=== PATIENT | female | born 1955 | race Caucasian/White ===

== ENCOUNTER → 2019-05-26 | Outpatient (REF) | payer OTHER ==
[~2019-05-26] MED LIST: AMLO25TA PO; BAYE325T12 PO; CALC500C16 PO; D32000TA PO; DITR1TAB PO; FLUO40CA PO; MAGN250T7 PO; MOBI4TAB PO; OMEP-218 PO
[2019-05-26 14:19] LABS: APPEARANCE, URINE TURBID (CLEAR); BACTERIA, URINE AUTO 3+ (NEGATIVE); BILIRUBIN, URINE AUTO NEGATIVE (NEGATIVE); BLOOD, URINE BLOOD 3+ (NEGATIVE); COLOR, URINE AMBER (YELLOW); GLUCOSE, URINE (UA) AUTO NEGATIVE (NEGATIVE); KETONE, URINE AUTO NEGATIVE (NEGATIVE); LEUKOCYTE ESTERASE, URINE AUTO 3+ (NEGATIVE); NITRITE, URINE AUTO NEGATIVE (NEGATIVE); PROTEIN, URINE AUTO 2+ mg/dL (NEGATIVE); RBC, URINE AUTO 33 /HPF (0-3); SPECIFIC GRAVITY URINE AUTO 1.017 (1.002-1.035); SQUAMOUS EPITHELIAL CELL UR AU 0 /HPF (0-6); UROBILINOGEN, URINE AUTO 0.2 mg/dL (0.0-2.0); WBC, URINE AUTO TNTC /HPF (0-3)
== END ==
LOC: M LAB REF 13:26
PROVIDERS: ATTEND Physician Assistant Medical
DX: N39.0 Urinary tract infection, site not specified (principal)

== ENCOUNTER 2019-06-04 10:07 | Day surgery (SDC) | payer BC ==
[~2019-06-04] VITALS: Ht 157.5 cm; Wt 51.7 kg
[~2019-06-04 10:07] MED LIST changes: +LIDOCAINE 1% MDV 20ML VIAL SQ PRN; +LR 1,000 ML IV ONE; +ceFAZolin SOD 2 GM in IV 1 EA IV ONE
[2019-06-04] MEDS ORDERED: LIDOCAINE 1% MDV 20ML VIAL ONE (10:08)
[2019-06-04] MEDS ORDERED: dexameTHASONE 10 MG/1 ML VIAL PRES.FREE (J1100) ONE (10:08)
[2019-06-04] MEDS ORDERED: PROPOFOL 200 MG/20 ML VIAL As Ordered ONE (10:35)
[2019-06-04] MEDS ORDERED: fentaNYL 100 MCG/2 ML INJECTION (J3010) As Ordered ONE (10:35)
[2019-06-04] MEDS ORDERED: dexameTHASONE 4 MG/ML 1ML VIAL (J1100) As Ordered ONE (10:35)
[2019-06-04] MEDS ORDERED: MIDAZOLAM INJ 2 MG/2 ML VIAL (J2250) As Ordered ONE (10:35)
[2019-06-04] MEDS ORDERED: ONDANSETRON 4MG/2ML VIAL (J2405) As Ordered ONE (10:35)
[2019-06-04] MEDS ORDERED: ROCURONIUM BROMIDE 50 MG/5 ML VIAL As Ordered ONE (10:36)
[2019-06-04] MEDS ORDERED: LIDOCAINE 2% INJ 100 MG/5 ML SDV (FOR ANES.) As Ordered ONE (10:36)
[2019-06-04] MEDS ORDERED: ACET-683 PO (11:00)
[2019-06-04] MEDS ORDERED: ACETAMINOPHEN 1000MG 100ML IV BTL (OFIRMEV) (J0131 PER 10MG) As Ordered ONE (13:19)
[2019-06-04] MEDS ORDERED: PHENYLephrine HCL 500 MCG/5 ML (100MCG/ML) SYRINGE (J2370) As Ordered ONE (13:24)
[2019-06-04] MEDS ORDERED: fentaNYL 100 MCG/2 ML INJECTION (J3010) IV PRN ×2 (14:45→16:00)
[2019-06-04] MEDS ORDERED: LR 1,000 ML IV SCH ×2 (14:45→16:00)
[2019-06-04] MEDS ORDERED: ONDANSETRON 4MG/2ML VIAL (J2405) IV PRN ×2 (14:45→16:00)
[2019-06-04] MEDS ORDERED: oxyCODONE 5MG TAB PO PRN ×2 (14:45→16:00)
[2019-06-04] MEDS ORDERED: METOCLOPRAMIDE INJ 10MG/2ML VIAL (J2765) IV PRN ×2 (14:45→16:00)
--- NOTE | 2019-06-04 15:05 | REP ---
Left wrist and distal forearm: Three views. History: Distal radial fracture fixation. No comparison images. 38.2 seconds of fluoroscopy time is reported. Findings: A sequence of three last image hold fluoroscopically obtained spot radiographs document ulnar placement of screw plate fixation device in the radius. No laterality markers are visible. Electronically Signed by Rich Spaulding MD 06/04/2019 03:31 P
[2019-06-04 16:20] VITALS: BP 126/74
--- NOTE | 2019-06-04 21:25 | RO ---
DATE OF PROCEDURE: 06/04/2019 PREPROCEDURE DIAGNOSIS: Left distal radius fracture. POSTPROCEDURE DIAGNOSIS: Left distal radius fracture. PROCEDURE: Open reduction internal fixation left intraarticular distal radius fracture, comminuted. SURGEON: Diego Levine MD MEDICAL RECEPTION SPECIALIST: None. ANESTHESIA: General. INDICATIONS: This is a 63-year-old female who is highly active who suffered a significantly displaced distal radius fracture. We discussed nonoperative versus operative intervention, the patient elected to proceed with operative intervention. We discussed the risks and benefits including but not limited to infection, damage to surrounding structures, malunion, nonunion. Patient understood these and wished to proceed. PREOPERATIVE ANTIBIOTICS: 2 grams of Ancef. COMPLICATIONS: None. Minimal blood loss. TOURNIQUET TIME: 39 minutes. DESCRIPTION OF PROCEDURE: The patient was brought back to the operating room (OR) in the supine position, underwent general anesthesia at which point the left arm was prepped and draped in the usual fashion. We had a time-out confirming site, side and surgery. Once all in agreement, we made a longitudinal incision over flexor carpi radialis (FCR), retracted FCR ulnarly at which point we incised the deep portion of the sheath encountering flexor pollicis longus (FPL). We retracted this ulnarly as well, exposing pronator quadratus. We lifted pronator quadratus over the distal radius exposing the fracture site. This was irrigated and debrided sharply at which point we did an indirect reduction maneuver manually. We then selected a three-holed distal radius Synthes variable angle locking plate. We first started with securing the plate with K-wires distally on the distal radius, confirming AP and lateral adequate placement. We then placed four distal locking screws at which point we compressed the plate back down to the bone along the shaft restoring the volar tilt through an indirect reduction maneuver manually along with using a cortical screw to compress the plate to the bone. This was confirmed on AP and lateral and obliques. We then placed two additional cortical screws. We final tightened all screws, confirmed on AP and lateral that we were happy with fracture reduction and fixation. At which point, we irrigated the wound thoroughly, closed the subcutaneous tissue with #3-0 Vicryl and the skin with #3-0 nylon. We then dressed the wound with Adaptic gauze, Webril, splint - a volar splint was placed with Kit. The patient was then awakened and taken to the post-anesthesia care unit (PACU) in stable condition. POSTOPERATIVE PLAN: Patient will work on pain control for the first 2 weeks, work on finger range of motion, at which point we will remove the operative splint and convert her over to a removable brace, allowing her to work on wrist range of motion. It will be at 6 weeks when we start allowing her to start lifting more heavy objects as long as the fracture appears to be healing. Patient expressed understanding and agreement with that ahead of time. MICHELLE
--- NOTE | 2019-06-04 23:18 | ECGEPIP ---
[facility] Test Date: 2019-06-04 Pat Name: MIKIE MYERS Department: Room: - Gender: Female Lead Manufacturing Technician: AWAIS : [id number] Requested By: Lalo Paz Order Number: [id number] Reading MD: Liban Grider Measurements Intervals [place] Rate: 84 P: 73 TX: 147 QRS: 44 QRSD: 89 T: 32 QT: 354 QTc: 420 Interpretive Statements SINUS RHYTHM, Within normal limits. No prior ECG available for comparison at the time of interpretation. Electronically Signed on 06-04-2019 23:18:07 EST by Liban Grider
== END 2019-06-04 12:03 | disposition home or self-care (01) ==
LOC: M SDC 10:07
PROVIDERS: ATTEND Orthopaedic Surgery Hand Surgery
DX: S52.572A Other intraarticular fracture of lower end of left radius, initial encounter for closed fracture (principal); X58.XXXA Exposure to other specified factors, initial encounter; Y92.89 Other specified places as the place of occurrence of the external cause; Y93.9 Activity, unspecified; Y99.9 Unspecified external cause status; I10 Essential (primary) hypertension; K21.9 Gastro-esophageal reflux disease without esophagitis; F41.9 Anxiety disorder, unspecified; F17.218 Nicotine dependence, cigarettes, with other nicotine-induced disorders; Z79.899 Other long term (current) drug therapy
CPT/HCPCS: 25608; 76000; 93005; C1713; J0131; J0690; J1100; J2250; J2370; J2405; J3010

== ENCOUNTER → 2023-01-29 | Outpatient (REF) | payer OTHER ==
[~2023-01-29] MED LIST changes: +ACET-683 PO; -LIDOCAINE 1% MDV 20ML VIAL SQ PRN; -LR 1,000 ML IV ONE; +OMEP-173 PO; -OMEP-218 PO; -ceFAZolin SOD 2 GM in IV 1 EA IV ONE
== END ==
LOC: M SFHCWAGY 10:26
PROVIDERS: ATTEND Nurse Practitioner Family
DX: Z12.4 Encounter for screening for malignant neoplasm of cervix (principal)
CPT/HCPCS: 87624; G0123